=== PATIENT | female | born 1985 | race American Indian/Alaskan Native ===

== ENCOUNTER 2017-04-09 01:30 | Emergency (ER) | payer OTHER ==
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
[2017-04-09] MEDS ORDERED: HYDROGEN PEROXIDE ONE (05:03)
[2017-04-09] MEDS ORDERED: MOTRIN PO ONE ×2 (05:30→06:48)
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
[2017-04-09 08:24] VITALS: BP 106/79
== END 2017-04-09 08:24 | disposition home or self-care (01) ==
LOC: ED 01:30
DX: S66.911A Strain of unspecified muscle, fascia and tendon at wrist and hand level, right hand, initial encounter (principal); S80.02XA Contusion of left knee, initial encounter; S86.912A Strain of unspecified muscle(s) and tendon(s) at lower leg level, left leg, initial encounter; S76.011A Strain of muscle, fascia and tendon of right hip, initial encounter; V49.49XA Driver injured in collision with other motor vehicles in traffic accident, initial encounter; Y93.89 Activity, other specified; Y92.89 Other specified places as the place of occurrence of the external cause; Y99.8 Other external cause status